=== PATIENT | male | born 1970 | race Caucasian/White ===

== ENCOUNTER 2017-03-29 05:06 | Emergency (ER) | payer BC ==
[~2017-03-29] VITALS: Ht 185.4 cm; Wt 119.7 kg
[2017-03-29 05:53] LABS: MCH 29.5 PG (29.0-34.0); MCV 86.8 FL (86-99); MEAN PLAT.VOLUME 9.3 uM^3 (9.0-12.4); PLATELET COUNT 318 K/uL (156-360); RBC DIS.WIDTH-CV 12.6 % (11.8-14.6); RBC DIS.WIDTH-SD 39.8 % (39-53); RED BLOOD COUNT 5.53 M/uL (4.00-5.50)
[2017-03-29 06:06] LABS: CHLORIDE 109 mEq/L (99-109); POTASSIUM 4.2 mEq/L (3.7-5.4); SODIUM 140 mEq/L (136-147)
[2017-03-29 06:09] LABS: GLUCOSE 134 mg/dL (70-99)
[2017-03-29 06:10] LABS: ANION GAP 10 MEQ/L (2-14); TOTAL BILIRUBIN 0.4 mg/dL (0.0-1.0)
[2017-03-29 06:12] LABS: ALKALINE PHOSPHATASE 90 IU/L (3-129); GFR ESTIMATE (CALCULATED) 49 mL/min/
[2017-03-29 06:13] LABS: UREA NITROGEN (BUN) 18 mg/dL (9-23)
[2017-03-29 06:14] LABS: DIRECT BILIRUBIN 0.2 mg/dL (0.0-0.3)
[2017-03-29 06:16] LABS: LIPASE 12 U/L (1.0-51.0)
[2017-03-29 08:38] LABS: ADD MIUA? YES; BILIRUBIN NEGATIVE; BLOOD SMALL; COLOR YELLOW ((YELLOW)); GLUCOSE (STRIP) NEGATIVE; KETONES NEGATIVE; LEUKOCYTES NEGATIVE; NITRITE NEGATIVE; PROTEIN (STRIP) NEGATIVE; SPECIFIC GRAVITY 1.019 (1.000-1.030); UROBILINOGEN 0.2 MG/DL (0.2-1.0)
[2017-03-29 08:51] LABS: BACTERIA NONE SEEN /HPF; EPITHELIAL CELLS RARE /HPF; HYALINE CASTS 0-5 /LPF; MUCUS TRACE /LPF; UCUL ADDED? NO; WHITE BLOOD CELLS 0-5 /HPF (0-5)
[2017-03-29] MEDS ORDERED: ZOFRAN ODT4 MG PO (09:10)
[2017-03-29] MEDS ORDERED: FLOMAX0.4 MG PO (09:10)
[2017-03-29] MEDS ORDERED: PERCOCET 5/31 TABLET PO (09:10)
[2017-03-29 09:37] VITALS: BP 126/80
== END 2017-03-29 09:45 | disposition home or self-care (01) ==
LOC: EME 05:06
DX: N20.0 Calculus of kidney (principal)
CPT/HCPCS: 74176; 80048; 80076; 81003; 83690; 85027; 99281; 99285; J1885; J2270; J2405; J7030